=== PATIENT | male | born 1970 | race Caucasian/White ===

== ENCOUNTER → 2019-08-06 16:03 | Outpatient (BNVA) | payer OTHER, SELFPAY | PROVIDERS: Family Provider Nurse Practitioner Family; PCP Nurse Practitioner Family; Visit Provider Counselor Professional | DX: F33.41 Major depressive disorder, recurrent, in partial remission (principal) | CPT/HCPCS: 90791 ==

== ENCOUNTER → 2020-03-24 10:58 | Outpatient (BNVA) | payer OTHER, SELFPAY | PROVIDERS: Family Provider Nurse Practitioner Family; PCP Nurse Practitioner Family; Visit Provider Nurse Practitioner Psychiatric/Mental Health | DX: F33.41 Major depressive disorder, recurrent, in partial remission (principal); F41.8 Other specified anxiety disorders; F17.210 Nicotine dependence, cigarettes, uncomplicated | CPT/HCPCS: 99213 ==